=== PATIENT | female | born 1975 | race Caucasian/White ===

== ENCOUNTER → 2017-02-24 | Outpatient (CLI) | payer BC ==
[~2017-02-24] MED LIST: NORCO 325 MG-51 TAB PO; PHENERGAN 25 TA25 MG PO; PHENERGAN W/CO120 ML; TOPAMAX 100MG100 MG PO
== END ==
LOC: COL.RAD 08:22
DX: M25.532 Pain in left wrist (principal)
CPT/HCPCS: J3301; Q9967